=== PATIENT | male | born 1990 | race Two or more races ===

== ENCOUNTER 2020-11-04 20:25 | Emergency (ER) | payer MEDICAID, OTHER ==
[~2020-11-04] VITALS: Ht 175.3 cm; Wt 118.0 kg
[2020-11-04 20:34] VITALS: BP 147/93
[2020-11-04] MEDS ORDERED: METF500T17 PO (21:00)
[2020-11-04] MEDS ORDERED: INSU100V8 SQ (21:00)
--- NOTE | 2020-11-04 21:00 | NUR ---
assessment analyst completed. Pt placed in isolation with notification outside room and iso cart at doorway. Call light in reach. Pt in no acute distress and states he just wants a Covid test so that if it is negative he can get back to work sooner.
--- NOTE | 2020-11-04 21:20 | NUR ---
Report given to GIOVANNA Ram and care transferred.
== END 2020-11-04 22:26 | disposition home or self-care (01) ==
LOC: ED 21:39
DX: B34.9 Viral infection, unspecified (principal); Z20.822 Contact with and (suspected) exposure to COVID-19; R50.9 Fever, unspecified
CPT/HCPCS: 99283; U0003

== ENCOUNTER 2020-11-21 12:48 | Emergency (ER) | payer MEDICAID ==
[~2020-11-21] VITALS: Ht 175.3 cm; Wt 118.0 kg
[~2020-11-21 12:48] MED LIST: INSU100V8 SQ; METF500T17 PO
[2020-11-21 13:04] VITALS: BP 145/87
--- NOTE | 2020-11-21 14:06 | NUR ---
undercover agent: pt from lobby to room 16
--- NOTE | 2020-11-21 14:10 | NUR ---
PT AMBULATORY TO BR WITH UPRIGHT STEADY GAIT
--- NOTE | 2020-11-21 14:15 | NUR ---
PA AT BS
[2020-11-21] MEDS ORDERED: CEFTRIAXONE 1,000 MG IM ONE (14:30)
[2020-11-21] MEDS ORDERED: CEFTRIAXONE 1,000 MG ONE (14:49)
[2020-11-21 15:00] LABS: ALBUMIN 3.5 g/dL (3.4-5.0); ANION GAP 5 mmol/L (5-15); CALCIUM 8.8 mg/dL (8.5-10.1); CHLORIDE 103 mmol/L (98-107)
[2020-11-21 15:01] LABS: CREATININE 0.81 mg/dL (0.7-1.3)
[2020-11-21 15:06] LABS: BASOPHILS % (AUTO) 1 % (0-1); EOSINOPHILS % (AUTO) 1 % (1-7); LYMPHOCYTES % (AUTO) 35 % (22-44); MEAN CORPUSCULAR HEMOGLOBIN 30.5 pg (27.5-34.5); MEAN CORPUSCULAR HGB CONC 34.9 g/dL (33.2-36.2); MEAN PLATELET VOLUME 10.3 fL (7.4-10.4); MONOCYTES % (AUTO) 9 % (2-9); NEUTROPHILS % (AUTO) 55 % (42-75); PLATELET COUNT 183 x10^3/uL (130-400); RED BLOOD COUNT 5.17 x10^6/uL (4.38-5.82); RED CELL DISTRIBUTION WIDTH 12.8 % (9.4-14.8)
[2020-11-21 15:16] LABS: MD NO
[2020-11-21 15:24] LABS: MICROSCOPIC INDICATED
[2020-11-21] MEDS ORDERED: BICILLIN-LA 2,400,000 UNITS/4 ML IM ONE (16:00)
--- NOTE | 2020-11-21 16:39 | NUR ---
Patient given discharge instructions and they have confirmed that they understand the instructions. Patient ambulatory with steady gait.
== END 2020-11-21 16:40 | disposition home or self-care (01) ==
LOC: ED 16:34
DX: N48.22 Cellulitis of corpus cavernosum and penis (principal); R10.9 Unspecified abdominal pain
CPT/HCPCS: 36415; 80048; 81001; 82040; 85025; 86592; 87086; 87491; 87591; 96372; 99284; J0561; J0696; 86780